=== PATIENT | male | born 1955 | race Caucasian/White ===

== ENCOUNTER 2018-05-11 09:58 | Inpatient (IN) | payer OTHER ==
[~2018-05-11] VITALS: Ht 175.3 cm; Wt 72.7 kg
[2018-05-11] MEDS ORDERED: methylPREDNISolone sod succ 125mg/2ml vial IV ONE (10:05)
[2018-05-11] MEDS ORDERED: normal saline 1000ML IV soln IVB ONE (10:05)
[2018-05-11] MEDS ORDERED: ipratropium 0.5 MG/2.5ML nebule IH ONE (10:05)
[2018-05-11] MEDS ORDERED: ipratropium 0.5 MG/2.5ML nebule ONE (10:13)
[2018-05-11 10:30] LABS: BASOPHILS % (AUTO) 0.1 % (0-1); EOSINOPHILS % (AUTO) 0.6 % (0-6); HEMATOCRIT 53.3 % (42.0-52.0); LYMPHOCYTES # (AUTO) 1.2 X10'3 (1.1-4.8); LYMPHOCYTES % (AUTO) 16.6 % (21-51); MEAN CORPUSCULAR HEMOGLOBIN 33.2 PG (27.0-31.0); MEAN CORPUSCULAR HGB CONC 34.4 g/dL (33.0-36.5); MEAN CORPUSCULAR VOLUME 96.3 FL (78-98); MEAN PLATELET VOLUME 7.9 FL (7.4-10.4); MONOCYTES # (AUTO) 0.6 X10'3 (0-0.9); MONOCYTES % (AUTO) 7.9 % (2-12); NEUTROPHILS # (AUTO) 5.4 X10'3 (1.8-7.7); NEUTROPHILS % (AUTO) 74.8 % (42-75); PLATELET COUNT 281 X10'3 (140-440); RED BLOOD COUNT 5.54 X10'6 (4.70-6.10); RED CELL DISTRIBUTION WIDTH 14.1 % (11.5-14.5); WHITE BLOOD COUNT 7.2 X10'3 (4.5-11.0)
[2018-05-11 10:34] LABS: HEMOGLOBIN 18.4 g/dl (14.0-17.9)
[2018-05-11 10:46] LABS: ALANINE AMINOTRANSFERASE 26 U/L (12-78); ALBUMIN 4.2 G/DL (3.4-5.0); ALBUMIN/GLOBULIN RATIO 1.3 (1.1-1.5); ALKALINE PHOSPHATASE 77 IU/L (46-116); ANION GAP 10 (8-16); ASPARTATE AMINO TRANSFERASE 21 U/L (10-37); BILIRUBIN,TOTAL 1.1 MG/DL (0.1-1.0); BLOOD UREA NITROGEN 24 MG/DL (7-18); BUN/CREATININE RATIO 28.2 (5.4-32.0); CALCIUM 9.3 MG/DL (8.5-10.1); CHLORIDE 93 MMOL/L (99-107); CREATININE 0.85 MG/DL (0.60-1.10); GLUCOSE 90 MG/DL (70-104); POTASSIUM 3.9 MMOL/L (3.5-5.1); SODIUM 131 MMOL/L (135-145); TOTAL CARBON DIOXIDE 27.7 MMOL/L (24-32); TOTAL PROTEIN 7.4 G/DL (6.4-8.2); eGFR > 90 ML/MIN
[2018-05-11] MEDS ORDERED: albuterol 2.5 MG/3 ML nebule CONTNEB PRN (11:00)
[2018-05-11] MEDS ORDERED: potassium Cl 40MEQ/NS 500ml 500 ML IV PRN ×2 (12:50)
[2018-05-11] MEDS ORDERED: magnesium Cl slow-release 64mg tablet PO PRN (12:50)
[2018-05-11] MEDS ORDERED: acetaminophen 325mg tablet PO PRN ×2 (12:50)
[2018-05-11] MEDS ORDERED: potassium Cl 20 mEq SR tablet PO PRN ×2 (12:50)
[2018-05-11] MEDS ORDERED: ipratropium/albuterol 3ml nebule NEB PRN (12:50)
[2018-05-11] MEDS ORDERED: magnesium 4gm in 100ml NS 100 ML IV PRN (12:50)
[2018-05-11] MEDS ORDERED: magnesium 2GM in 50ml NS 50 ML IV PRN (12:50)
[2018-05-11] MEDS ORDERED: magnesium hydroxide 30ml (MOM) UD suspension PO PRN (12:50)
[2018-05-11] MEDS ORDERED: ondansetron/PF 4mg/2ml inj IV PRN (12:50)
[2018-05-11] MEDS ORDERED: mag hydrox/Alum hydrox/simeth 30ml oral suspension PO PRN (12:50)
[2018-05-11] MEDS ORDERED: ALBU8.5H8 INH (13:02)
[2018-05-11] MEDS ORDERED: CHLO25TA10 PO (13:03)
[2018-05-11] MEDS ORDERED: LISI-600 PO (13:04)
--- NOTE | 2018-05-11 13:20 | NUR ---
Report received from ED RNNette.
[2018-05-11 14:15] VITALS: BP 102/79
--- NOTE | 2018-05-11 14:15 | NUR ---
Patient arrived to floor in room 345A, assisted by ED RN. patient reports no pain, VSS 3L O2 and O2 sat 99%, BP 102/79, HR 92, RR 18. will continue to monitor.
[2018-05-11] MEDS ORDERED: haloperidol 5mg tablet PO PRN (15:20)
[2018-05-11] MEDS ORDERED: haloperidol lactate 5mg/ml inj IM PRN (15:20)
[2018-05-11] MEDS ORDERED: LORazepam 1 MG tablet PO PRN (15:20)
[2018-05-11] MEDS ORDERED: LORazepam 2 mg/ml vial IV PRN (15:20)
[2018-05-11] MEDS ORDERED: thiamine inj. 100 MG in normal saline 100ml IV soln 100 ML IV ONE (15:20)
[2018-05-11] MEDS: nicotine 21mg patch - 24 hr TD SCH (16:00)
[2018-05-11] MEDS: methylPREDNISolone sod succ/PF 40mg inj. IV SCH (16:00)
[2018-05-11] MEDS: ipratropium/albuterol 3ml nebule NEB SCH ×3 (16:06→23:59)
--- NOTE | 2018-05-11 18:00 | NUR ---
Problems reprioritized. Patient report given, questions answered & plan of care reviewed with ANGEL Flower.
[2018-05-11] MEDS ORDERED: azithromycin/NS 500mg/250ml 250 ML IV SCH (18:13)
--- NOTE | 2018-05-11 18:30 | NUR ---
Patient in room [facility]. I have received report from IMMNAUEL and had the opportunity to ask questions and assume patient care.
[2018-05-11 19:00] VITALS: BP 122/67
[2018-05-11] MEDS: azithromycin/NS 500mg/250ml 250 ML IV SCH (19:15)
[2018-05-11 23:00] VITALS: BP 122/66
[2018-05-12] MEDS: methylPREDNISolone sod succ/PF 40mg inj. IV SCH ×3 (00:08→16:18)
[2018-05-12] MEDS: ipratropium/albuterol 3ml nebule NEB SCH ×4 (03:57→14:44)
[2018-05-12 05:21] LABS: BASOPHILS % (AUTO) 0.1 % (0-1); EOSINOPHILS # (AUTO) 0.1 X10'3 (0-0.9); EOSINOPHILS % (AUTO) 1.1 % (0-6); HEMATOCRIT 48.6 % (42.0-52.0); HEMOGLOBIN 16.7 g/dl (14.0-17.9); LYMPHOCYTES # (AUTO) 0.6 X10'3 (1.1-4.8); LYMPHOCYTES % (AUTO) 12.7 % (21-51); MEAN CORPUSCULAR HEMOGLOBIN 33.3 PG (27.0-31.0); MEAN CORPUSCULAR HGB CONC 34.3 g/dL (33.0-36.5); MEAN PLATELET VOLUME 8.3 FL (7.4-10.4); MONOCYTES # (AUTO) 0.2 X10'3 (0-0.9); MONOCYTES % (AUTO) 4.1 % (2-12); NEUTROPHILS # (AUTO) 4.2 X10'3 (1.8-7.7); PLATELET COUNT 220 X10'3 (140-440); RED BLOOD COUNT 5.01 X10'6 (4.70-6.10); WHITE BLOOD COUNT 5.1 X10'3 (4.5-11.0)
[2018-05-12 05:32] LABS: ALBUMIN 3.6 G/DL (3.4-5.0); ANION GAP 7 (8-16); BLOOD UREA NITROGEN 22 MG/DL (7-18); BUN/CREATININE RATIO 30.6 (5.4-32.0); CALCIUM 8.8 MG/DL (8.5-10.1); CHLORIDE 99 MMOL/L (99-107); CREATININE 0.72 MG/DL (0.60-1.10); GLUCOSE 123 MG/DL (70-104); MAGNESIUM 2.2 MG/DL (1.5-2.4); POTASSIUM 3.9 MMOL/L (3.5-5.1); SODIUM 136 MMOL/L (135-145); TOTAL CARBON DIOXIDE 29.6 MMOL/L (24-32); eGFR > 90 ML/MIN
--- NOTE | 2018-05-12 06:20 | NUR ---
Patient in room [facility] 345. I have received report from ANGEL Ellis and had the opportunity to ask questions and assume patient care.
--- NOTE | 2018-05-12 06:25 | NUR ---
Problems reprioritized. Patient report given, questions answered & plan of care reviewed with NAOMY.
[2018-05-12 06:52] VITALS: BP 127/90
[2018-05-12] MEDS ORDERED: multivitamins, therapeutics tablet PO SCH (08:00)
[2018-05-12] MEDS ORDERED: thiamine 100mg tablet PO SCH (08:00)
[2018-05-12] MEDS ORDERED: chlorthalidone 25mg tablet PO SCH (08:00)
[2018-05-12] MEDS ORDERED: K and/or MAG REPLACEMENT MC SCH (08:00)
[2018-05-12] MEDS ORDERED: enoxaparin 40mg/0.4ml syringe SQ SCH (08:00)
[2018-05-12] MEDS ORDERED: lisinopril 20mg tablet PO SCH (08:00)
[2018-05-12] MEDS ORDERED: folic acid 1mg tablet PO SCH (08:00)
[2018-05-12] MEDS: nicotine 21mg patch - 24 hr TD SCH (08:25)
[2018-05-12 11:00] VITALS: BP 111/69
[2018-05-12] MEDS ORDERED: PRED10TA23 PO (12:38)
[2018-05-12] MEDS ORDERED: ALBU18HF2 IH (12:38)
[2018-05-12] MEDS ORDERED: AZIT-63 PO (12:38)
[2018-05-12] MEDS ORDERED: BUDE10.22 INH (12:38)
--- NOTE | 2018-05-12 13:00 | NUR ---
Patient doesn't have a ride until 1900. Tried to get him a cab but he lives in [place] and can't pay for it because he paid for his medications. Friend will pick him up around 1900.
[2018-05-12] MEDS ORDERED: NICO-687 TD (14:25)
--- NOTE | 2018-05-12 17:55 | NUR ---
Problems reprioritized. Patient report given, questions answered & plan of care reviewed with ANGEL Gomes.
[2018-05-12] MEDS: azithromycin/NS 500mg/250ml 250 ML IV SCH (18:00)
[2018-05-12 19:25] VITALS: BP 93/43
--- NOTE | 2018-05-12 19:25 | NUR ---
PT DC' D TO HOME W/ FAMILY DRIVING IN PRIVATE VEHICLE. PT DISCHARGED TO PRIVATE VEHICLE VIA W/C WITH DATA ANALYSIS MANAGER. PT HAS HIS RX MEDS ( DELIVERED BY [facility]) Addendum: 05/12/18 at 2144 by Gee Akins RN Amended: Links added.
[2018-05-12] MEDS ORDERED: lactobacillus rhamnosus 10,000 MMU CELLS/CAPSULE PO SCH (20:00)
== END 2018-05-12 19:30 | disposition home or self-care (01) | DRG 189 ==
LOC: ER 09:59 → ED HOLD 12:46 → EDBEDREQ 13:10 → SUR 3N 14:50
PROVIDERS: ADMIT Hospitalist; ATTEND Hospitalist
DX: J96.01 Acute respiratory failure with hypoxia (principal); J44.1 Chronic obstructive pulmonary disease with (acute) exacerbation; J45.51 Severe persistent asthma with (acute) exacerbation; R91.1 Solitary pulmonary nodule; I10 Essential (primary) hypertension; F17.200 Nicotine dependence, unspecified, uncomplicated; Z79.899 Other long term (current) drug therapy
CPT/HCPCS: 36415; 71045; 80048; 80053; 83605; 83735; 83880; 84484; 85025; 87040; 87070; 93005; 94640; 94644; 94760; 96361; 96374; 99285; G0378; J0456; J1650; J2920; J2930; J3411; J7030